=== PATIENT | female | born 1970 | race Caucasian/White ===

== ENCOUNTER 2018-01-16 11:32 | Outpatient (CLI) | payer OTHER | END 2018-01-16 11:38 | disposition home or self-care (01) | LOC: RAD 11:32 | DX: M25.511 Pain in right shoulder (principal); M54.2 Cervicalgia ==

== ENCOUNTER → 2018-01-16 | Outpatient (CLI) | payer OTHER ==
[~2018-01-16] VITALS: Ht 152.4 cm; Wt 122.5 kg
[~2018-01-16] MED LIST: ATENOLOL100 MG; ATENOLOL100 MG PO; CLONAZEPAM0.5 MG; HYZAAR 100-12.1 EACH; HYZAAR 100-12.1 EACH PO; OMEPRAZOLE40 MG; TOBREX5 ML OP
== END | disposition home or self-care (01) ==
LOC: PPHC 10:01
DX: M25.511 Pain in right shoulder (principal)

== ENCOUNTER → 2018-01-16 | Emergency (ER) | payer OTHER | END | disposition left against medical advice (07) | LOC: ER 10:54 | DX: Z53.20 Procedure and treatment not carried out because of patient's decision for unspecified reasons (principal) ==

== ENCOUNTER → 2019-01-15 11:21 | Outpatient (CLI) | payer OTHER ==
[~2019-01-15 11:21] MED LIST changes: +INTEGRA CAPSUL1 EACH PO; +OSEL75CA PO; +TOPROL XL100 M1
== END | disposition home or self-care (01) ==
LOC: LAB 11:21
DX: J11.1 Influenza due to unidentified influenza virus with other respiratory manifestations (principal); J20.0 Acute bronchitis due to Mycoplasma pneumoniae

== ENCOUNTER 2019-01-15 13:58 | Inpatient (IN) | payer OTHER ==
[~2019-01-15] VITALS: Ht 170.2 cm; Wt 122.5 kg
[~2019-01-15 13:58] MED LIST changes: -INTEGRA CAPSUL1 EACH PO; -OSEL75CA PO; -TOPROL XL100 M1
[2019-01-15] MEDS ORDERED: TOPROL XL100 M1 (14:26)
[2019-01-18] MEDS ORDERED: OSEL75CA PO (18:40)
[2019-01-18] MEDS ORDERED: INTEGRA CAPSUL1 EACH PO (18:41)
== END 2019-01-18 19:41 | disposition home or self-care (01) | DRG 195 ==
LOC: ER 13:58 → SEC-K 17:46 → SURH 17:46
PROVIDERS: ADMIT Internal Medicine
PROC: 4A033R1 Measurement of Arterial Saturation, Peripheral, Percutaneous Approach (ICD-10-PCS; principal; 2019-01-15)
PROC: 3E0F7GC Introduction of Other Therapeutic Substance into Respiratory Tract, Via Natural or Artificial Opening (ICD-10-PCS; 2019-01-15)
PROC: 30233N1 Transfusion of Nonautologous Red Blood Cells into Peripheral Vein, Percutaneous Approach (ICD-10-PCS; 2019-01-15)
PROC: 4A12X4Z Monitoring of Cardiac Electrical Activity, External Approach (ICD-10-PCS; 2019-01-16)
PROC: 8E0ZXY6 Isolation (ICD-10-PCS; 2019-01-16)
DX: J09.X2 Influenza due to identified novel influenza A virus with other respiratory manifestations (principal); D50.0 Iron deficiency anemia secondary to blood loss (chronic); H10.33 Unspecified acute conjunctivitis, bilateral

== ENCOUNTER 2019-04-04 08:20 | Inpatient (IN) | payer OTHER ==
[~2019-04-04] VITALS: Ht 170.2 cm; Wt 136.1 kg
[~2019-04-04 08:20] MED LIST changes: +INTEGRA CAPSUL1 EACH PO; +OSEL75CA PO; +TOPROL XL100 M1
--- NOTE | 2019-04-04 08:23 | NUR ---
PACIENTE ALERTA Y ORIENTADA POR NAYE ESFERAS QUIEN REFIERE DOLOR ABDOMINAL DESDE VALENTINE. REFIERE HX DE DIVERTICULITIS.
--- NOTE | 2019-04-04 09:35 | NUR ---
MS COULTER ORIENTA A PACIENTE SOBRE ORDENES MEDICAS. ADMINISTRA MEDICAMENTOS, CANALIZA PACIENTE Y COLECTA MUESTRAS DE LABORATORIO ORDENADAS BAJO MEDIDAS ASEPTICAS. PENDIENTE A RESULTADOS DE LABORATORIO PARA RE-EVALUACION MEDICA.
[2019-04-09] MEDS ORDERED: CIPRO500 MG PO (15:14)
[2019-04-09] MEDS ORDERED: FLAGYL500MG PO (15:15)
== END 2019-04-09 15:54 | disposition home or self-care (01) | DRG 392 ==
LOC: ER 08:20 → MEDI 19:11 → MEDJ 19:11 → MEDI 04-05 16:34
PROVIDERS: ADMIT Internal Medicine
PROC: BW21ZZZ Computerized Tomography (CT Scan) of Abdomen and Pelvis (ICD-10-PCS; principal; 2019-04-04)
DX: K57.32 Diverticulitis of large intestine without perforation or abscess without bleeding (principal); D64.89 Other specified anemias; K59.09 Other constipation; E66.01 Morbid (severe) obesity due to excess calories; I10 Essential (primary) hypertension; F41.0 Panic disorder [episodic paroxysmal anxiety]

== ENCOUNTER → 2019-07-15 | Emergency (ER) | payer OTHER ==
[~2019-07-15] VITALS: Ht 170.2 cm; Wt 122.5 kg
[~2019-07-15] MED LIST changes: +CIPRO500 MG PO; +FLAGYL500MG PO
== END | disposition home or self-care (01) ==
LOC: ER 00:44
DX: I10 Essential (primary) hypertension (principal)

== ENCOUNTER 2020-01-08 11:05 | Emergency (ER) | payer OTHER ==
[~2020-01-08] VITALS: Ht 170.2 cm; Wt 113.4 kg
[2020-01-08] MEDS ORDERED: PUREVIT DUALFE1 EACH PO (12:44)
== END 2020-01-08 17:46 | disposition home or self-care (01) ==
LOC: ER 11:05
DX: K58.9 Irritable bowel syndrome, unspecified (principal)

== ENCOUNTER 2020-01-30 09:00 | Inpatient (IN) | payer OTHER ==
[~2020-01-30] VITALS: Ht 170.2 cm; Wt 113.4 kg
[~2020-01-30 09:00] MED LIST changes: +PUREVIT DUALFE1 EACH PO
[2020-01-30] MEDS ORDERED: NEXIUM40 M1 PO (10:37)
[2020-02-05] MEDS ORDERED: IRON236 MG PO (15:29)
[2020-02-07] MEDS ORDERED: PERCOCET 5-3251 EACH PO (10:28)
[2020-02-07] MEDS ORDERED: INTESTINEX680 M1 PO (10:28)
[2020-02-07] MEDS ORDERED: PRILOSEC OTC20 MG PO (10:28)
[2020-02-07] MEDS ORDERED: NEURONTIN300 MG PO (10:28)
== END 2020-02-07 14:43 | disposition home or self-care (01) | DRG 331 ==
LOC: EDSTATUS 09:00 → ADM 09:00 → SURH 02-05 06:23 → O/R 02-05 06:23 → SURH 02-05 09:00
PROVIDERS: ADMIT Surgery
PROC: 0DBN4ZZ Excision of Sigmoid Colon, Percutaneous Endoscopic Approach (ICD-10-PCS; principal; 2020-02-05 10:30)
DX: K57.20 Diverticulitis of large intestine with perforation and abscess without bleeding (principal); I10 Essential (primary) hypertension; E66.01 Morbid (severe) obesity due to excess calories; D64.9 Anemia, unspecified

== ENCOUNTER 2021-03-09 10:18 | Day surgery (SDC) | payer OTHER ==
[~2021-03-09 10:18] MED LIST changes: +INTESTINEX680 M1 PO; +IRON236 MG PO; +NEURONTIN300 MG PO; +NEXIUM40 M1 PO; +PERCOCET 5-3251 EACH PO; +PRILOSEC OTC20 MG PO
== END 2021-03-09 15:00 | disposition home or self-care (01) ==
LOC: AMB-ENDOS 10:18
PROVIDERS: ATTEND Surgery
DX: D12.2 Benign neoplasm of ascending colon (principal); Z20.822 Contact with and (suspected) exposure to COVID-19

== ENCOUNTER 2021-10-06 08:45 | Emergency (ER) | payer OTHER ==
[~2021-10-06] VITALS: Ht 167.6 cm; Wt 114.3 kg
[2021-10-06] MEDS ORDERED: PEPCID AC20 MG (09:06)
[2021-10-06] MEDS ORDERED: MEGESTROL ACETA20 MG PO (09:06)
[2021-10-06] MEDS ORDERED: HYDROCHLOROTHIA25 MG PO (09:06)
[2021-10-06] MEDS ORDERED: MIRALAX510 GM PO (15:46)
== END 2021-10-06 16:35 ==
LOC: ER 08:45
DX: K59.09 Other constipation (principal); I10 Essential (primary) hypertension

== ENCOUNTER 2021-10-14 09:06 | Outpatient (CLI) | payer OTHER ==
[~2021-10-14 09:06] MED LIST changes: +HYDROCHLOROTHIA25 MG PO; +MEGESTROL ACETA20 MG PO; +MIRALAX510 GM PO; +PEPCID AC20 MG
== END 2021-10-14 09:16 | disposition home or self-care (01) ==
LOC: RAD 09:06
PROVIDERS: ATTEND Obstetrics & Gynecology
DX: I10 Essential (primary) hypertension (principal); R05.8 Other specified cough

== ENCOUNTER 2022-06-15 07:49 | Outpatient (CLI) | payer OTHER | END 2022-06-15 07:59 | disposition home or self-care (01) | LOC: RAD 07:49 | DX: M25.552 Pain in left hip (principal); M25.551 Pain in right hip ==